=== PATIENT | male | born 1945 | race Caucasian/White ===

== ENCOUNTER 2019-11-09 13:15 | Outpatient (CLI) | payer MEDICARE, OTHER, SELFPAY | END 2019-11-09 13:16 | disposition home or self-care (01) | LOC: WOUND 13:16 | PROVIDERS: Family Provider Family Medicine; PCP Family Medicine; Visit Provider Nurse Practitioner Family | DX: L02.31 Cutaneous abscess of buttock (principal); I96 Gangrene, not elsewhere classified | CPT/HCPCS: 11042; 87070; 87077; 87176; 87186; 87205; G0463 ==

== ENCOUNTER 2019-11-16 13:57 | Outpatient (CLI) | payer MEDICARE, OTHER, SELFPAY | END 2019-11-16 13:58 | disposition home or self-care (01) | LOC: WOUND 13:58 | PROVIDERS: Family Provider Family Medicine; PCP Family Medicine; Visit Provider Nurse Practitioner Family | DX: L98.412 Non-pressure chronic ulcer of buttock with fat layer exposed (principal) | CPT/HCPCS: 11042 ==

== ENCOUNTER 2019-11-23 13:26 | Outpatient (CLI) | payer MEDICARE, OTHER, SELFPAY | END 2019-11-23 13:27 | disposition home or self-care (01) | LOC: WOUND 13:34 | PROVIDERS: Family Provider Family Medicine; PCP Family Medicine; Visit Provider Nurse Practitioner Family | DX: L02.31 Cutaneous abscess of buttock (principal) | CPT/HCPCS: 11042 ==

== ENCOUNTER 2019-11-30 14:08 | Outpatient (CLI) | payer MEDICARE, OTHER, SELFPAY | END 2019-11-30 14:09 | disposition home or self-care (01) | LOC: WOUND 14:09 | PROVIDERS: Family Provider Family Medicine; PCP Family Medicine; Visit Provider Nurse Practitioner Family | DX: E11.622 Type 2 diabetes mellitus with other skin ulcer (principal); L98.412 Non-pressure chronic ulcer of buttock with fat layer exposed | CPT/HCPCS: 11042 ==